=== PATIENT | male | born 1990 ===

== ENCOUNTER 2016-11-19 19:18 | Emergency (ER) | payer OTHER, SELFPAY ==
[2016-11-19 19:25] VITALS: BP 133/77; PULSE 76; RESP 18; TEMP 98.1; O2SAT 96
[2016-11-19 19:31] VITALS: BMI 26.9
[2016-11-19] MEDS ORDERED: Bacitracin 500 Units/gm Oint Foilpak UD TOP ONE (19:50)
--- NOTE | 2016-11-19 19:50 | C.PDOC ---
History Of Present Illness 26 y/o male brought in by EMS with c/o laceration to head status post trip and hit his head on a duct system. Denies LOC, visual changes, headache, nausea, vomiting, new weakness or numbness, or other complaints. Time Seen by Provider: 11/19/16 19:23 Chief Complaint (Nursing): Abnormal Skin Integrity History Per: Patient History/Exam Limitations: no limitations Onset/Duration Of Symptoms: Hrs Current Symptoms Are (Timing): Still Present Location Of Injury: Right: Hand Quality Of Symptoms: denies: Draining Recent travel outside of the [place]: No Past Medical History Reviewed: Historical Data, Nursing Documentation, Vital Signs Vital Signs: Last Vital Signs Temp 98.1 F 11/19/16 19:25 Pulse 76 11/19/16 19:25 Resp 18 11/19/16 19:25 BP 133/77 11/19/16 19:25 Pulse Ox 96 11/19/16 21:32 - Medical History PMH: Schizophrenia Family History: States: Unknown Family Hx - Social History Hx Alcohol Use: No Hx Substance Use: No - Immunization History Hx Tetanus Toxoid Vaccination: No Hx Influenza Vaccination: No Hx Pneumococcal Vaccination: No Review Of Systems Except As Marked, All Systems Reviewed And Found Negative. Constitutional: Negative for: Fever, Chills Gastrointestinal: Negative for: Nausea, Vomiting Skin: Positive for: Other (laceration to scalp). Negative for: Rash Neurological: Negative for: Weakness, Numbness, Headache, Dizziness Physical Exam - Physical Exam Appears: Non-toxic, No Acute Distress Skin: Normal Color, Warm, Dry Head: Normacephalic, Tenderness, Laceration (5.0 cm laceration right parietal scalp. No active drainage. ) Eye(s): bilateral: Normal Inspection, PERRL, EOMI Ear(s): Bilateral: Normal Nose: Normal Oral Mucosa: Moist Neck: Normal ROM, No Midline Cervical Tenderness, No Paracervical Tenderness, No Step Off Deformity, Supple Chest: Symmetrical Cardiovascular: Rhythm Regular, No Murmur Respiratory: Normal Breath Sounds, No Rales, No Rhonchi, No Wheezing Gastrointestinal/Abdominal: Soft, No Tenderness Back: Normal Inspection, No Vertebral Tenderness Extremity: Normal ROM, Capillary Refill (< 2 sec.) Extremity: Bilateral: Normal Color And Temperature Neurological/Psych: Oriented x3, Normal Speech, Normal Cognition ED Course And Treatment O2 Sat by Pulse Oximetry: 96 (RA) Pulse Ox Interpretation: Normal - CT Scan/US CT Head Other Rad Studies (CT/US): Read By Radiologist, Radiology Report Reviewed CT/US Interpretation: EXAM: CT Head Without Intravenous Contrast. CLINICAL HISTORY: 26 years old, male; Injury or trauma; Fall; Initial encounter; Concussion / head injury. TECHNIQUE: Axial computed tomography images of the head/brain without intravenous contrast. This CT exam. was performed using one or more of the following dose reduction techniques: automated exposure. control , adjustment of the mA and/or kV according to patient size, and/or use of iterative. reconstruction technique. COMPARISON: No relevant prior studies available. FINDINGS: Brain: No hemorrhage. No significant white matter disease. No edema. Ventricles: No hydrocephalus. Bones: Skull is intact. Soft tissues: Predominately right frontal scalp injury with subcutaneous air noted. Sinuses: No acute sinusitis. Mastoid air cells: No mastoid effusion. IMPRESSION: No CT evidence of acute intracranial abnormality. Predominately right frontal scalp injury with subcutaneous air noted. Correlate clinically. Progress Note: Treated with Tylenol. CT Head ordered and reviewed. Alec placed (4). Patient tolerated procedure well. Advised patient to follow up with PMD in 1-2 days. Staple removal in 7 days. Discussed wound care and head injury concern. Laceration - Laceration Repair Right Parietal Scalp Wound Length (In cm): 5.0 Description Of Wound: Linear Wound Cleansed With: Betadine, Sterile Saline Anesthesia: Lidocaine 1%, With Epi Wound Examination: Irrigated With Saline, No FB With Wound Exploration Wound Closure: Alec (4) Disposition - Disposition Disposition: HOME/ ROUTINE Disposition Time: 21:27 Condition: STABLE Additional Instructions: Staple removal in 7 days. Watch for signs of infection including redness, swelling and discharge. Watch for signs of concern for head injury including severe headache, difficulty awakening and vomiting. Return for wound check in2 days or sooner if symptoms persist or worsen. Prescriptions: Acetaminophen [Tylenol 325mg tab] 650 mg PO Q4 PRN #20 tab PRN Reason: Pain, Mild (1-3) Instructions: Scalp Contusion in Adults (ED) - Clinical Impression Clinical Impression: Scalp laceration - PA / LOOM BLOWER / Resident Statement MD/DO has reviewed & agrees with the documentation as recorded. - Scribe Statement The provider has reviewed the documentation as recorded by the Scribe Dioni Moussa All medical record entries made by the Radha were at my direction and personally dictated by me. I have reviewed the chart and agree that the record accurately reflects my personal performance of the history, physical exam, medical decision making, and the department course for this patient. I have also personally directed, reviewed, and agree with the discharge instructions and disposition.
[2016-11-19] MEDS ORDERED: Lidocaine 1% w Epi 1:100,000 Inj INJ ONE (19:51)
[2016-11-19] MEDS ORDERED: Bacitracin 500 Units/gm Oint Foilpak UD ONE (19:59)
[2016-11-19] MEDS ORDERED: Lidocaine 2% Inj (20ml) ONE (20:01)
--- NOTE | 2016-11-19 21:15 | CT ---
EXAM: CT Head Without Intravenous Contrast CLINICAL HISTORY: 26 years old, male; Injury or trauma; Fall; Initial encounter; Concussion / head injury TECHNIQUE: Axial computed tomography images of the head/brain without intravenous contrast. This CT exam was performed using one or more of the following dose reduction techniques: automated exposure control, adjustment of the mA and/or kV according to patient size, and/or use of iterative reconstruction technique. COMPARISON: No relevant prior studies available. FINDINGS: Brain: No hemorrhage. No significant white matter disease. No edema. Ventricles: No hydrocephalus. Bones: Skull is intact. Soft tissues: Predominately right frontal scalp injury with subcutaneous air noted. Sinuses: No acute sinusitis. Mastoid air cells: No mastoid effusion. IMPRESSION: No CT evidence of acute intracranial abnormality. Predominately right frontal scalp injury with subcutaneous air noted. Correlate clinically.
== END 2016-11-19 21:33 | disposition home or self-care (01) ==
LOC: C.ER 19:18
DX: S01.01XA Laceration without foreign body of scalp, initial encounter (principal); W22.09XA Striking against other stationary object, initial encounter; Y92.89 Other specified places as the place of occurrence of the external cause